=== PATIENT | male | born 1975 | race Caucasian/White ===

== ENCOUNTER 2023-05-15 09:53 | Outpatient (CLI) | payer BC, SELFPAY | END 2023-05-15 09:54 | disposition home or self-care (01) | LOC: LKVREF 09:56 | PROVIDERS: PCP Family Medicine; Visit Provider Family Medicine | DX: Z13.220 Encounter for screening for lipoid disorders (principal) | CPT/HCPCS: 80061 ==

== ENCOUNTER 2023-09-04 00:18 | Emergency (ER) | payer BC, SELFPAY ==
[2023-09-04 00:21] VITALS: BP 169/98; PULSE 99; RESP 16; TEMP 36.4; O2SAT 95; BMI 33.7
--- NOTE | 2023-09-04 00:37 | CRLHL7_ITS ---
For Patients: As a result of the Century Cures Act, medical imaging exams and procedure reports are released immediately into your electronic medical record. You may view this report before your referring provider. If you have questions, please contact your health care provider. INDICATION: Leg swelling, Unilateral leg swelling TECHNIQUE: Ultrasound venous duplex left lower extremity. Real-time redmond-scale (B mode 2D), color Doppler, and spectral Doppler imaging were performed with compression and augmentation. COMPARISON: None FINDINGS: Deep veins: The left common femoral, femoral, popliteal, and visualized calf veins are fully compressible, demonstrate normal color flow, and normal response to mechanical augmentation. The Duplex Doppler waveforms are normal in appearance. Superficial veins: The visualized greater saphenous and superficial veins of the leg and calf are unremarkable. Soft tissue: No masses or cysts are identified. No adenopathy is seen. IMPRESSION: 1. No sonographic evidence of acute deep venous thrombosis seen. Dictated by: William Mohan MD @ 09/04/2023 01:44:43 (Electronically Signed)
--- NOTE | 2023-09-04 00:37 | ED.GENADULT ---
HPI - General Adult General Date Seen: 09/04/23 Chief complaint: Extremity Pain/Injury, Lower Stated complaint: swollen left foot Time Seen by Provider: 09/04/23 00:20 Source: patient Mode of arrival: ambulatory Limitations: no limitations History of Present Illness HPI narrative: Patient is a 48-year-old male presenting for left lower extremity swelling. States the swelling was 1st noticed this morning. Has not noticed much pain in the leg other than to his left heel but does states he has been having issues with that heel since April when he hurt it jumping into a pool. Denies history of blood clots, recent immobility, DVTs, cancer. Denies numbness or inability to the left lower extremity. Denies chest pain, shortness of breath. No other concerns noted at this time Related Data Home Medications ?Medication ?Instructions ?Recorded ?Confirmed glucosamine 750 wp-tahfcagndfd-brm tab PO 05/15/23 05/15/23 no1 625 mg-C 30 mg-amairani 1 mg tablet (Kilnwpecekz-Ruuqkxugffx-ZOO) Allergies Allergy/AdvReac Type Severity Reaction Status Date / Time No Known Drug Allergies Allergy Unverified 05/15/23 09:23 Review of Systems Narrative: Pertinent systems reviewed and are negative unless stated in HPI PFSH PFSH Surgical History Status post cholecystectomy ?Z90.49 - Acquired absence of other specified parts of digestive tract (ICD-10) History of ventral hernia repair ?Z98.890 - Other specified postprocedural states (ICD-10) ?Z87.19 - Personal history of other diseases of the digestive system (ICD-10) Family History Other Leukemia Social History Little interest or pleasure in doing things: not at all Feeling down, depressed, or hopeless: not at all Exam Narrative: Exam Narrative: Const: Well-nourished, Well-developed, in mild distress Eyes: PERRL, no conjunctival injection, and symmetrical lids HENT: Atraumatic external nose and ears. Moist mucous membranes. CVS: RRR,Peripheral pulses 2+ and equal in all extremities RESP: Unlabored respiratory effort. MSK:Extremities w/o deformity, Normal Active ROM, +1 pitting edema left lower extremity [facility] [place] Skin: Warm, Dry. No rashes or lesions. Neuro: Normal Muscle tone, No focal neurological deficits. Psych: Awake, Alert, & Oriented x3. Appropriate mood and affect. Const: Vital Signs, click to edit/add: Vital Signs - 24 hr 09/04/23 00:21 Temperature 97.6 F Pulse Rate [Pulse Oximeter] 99 Respiratory Rate 16 Blood Pressure [Ri ght Upper Arm] 169/98 H Pulse Oximetry 95 Oxygen Delivery Me thod Room Air Course Vital Signs Vital signs: Initial Vital Signs Temperature 97.6 F 09/04/23 00:21 Temperature Source Temporal Artery Scan 09/04/23 00:21 Pulse Rate 99 09/04/23 00:21 Respiratory Rate 16 09/04/23 00:21 Blood Pressure 169/98 H 09/04/23 00:21 Blood Pressure Mean 121 H 09/04/23 00:21 Blood Pressure Position Sitting 09/04/23 00:21 Pulse Oximetry 95 09/04/23 00:21 Oxygen Delivery Method Room Air 09/04/23 00:21 Vital Signs Temperature 97.6 F 09/04/23 00:21 Pulse Rate 99 09/04/23 00:21 Respiratory Rate 16 09/04/23 00:21 Blood Pressure 169/98 H 09/04/23 00:21 Pulse Oximetry 95 09/04/23 00:21 Oxygen Delivery Method Room Air 09/04/23 00:21 Temperature 97.6 F 09/04/23 00:21 Pulse Rate 99 09/04/23 00:21 Respiratory Rate 16 09/04/23 00:21 Blood Pressure 169/98 H 09/04/23 00:21 Pulse Oximetry 95 09/04/23 00:21 Oxygen Delivery Method Room Air 09/04/23 00:21 Medical Decision Making MDM Narrative Medical decision making narrative: Foods a 48-year-old male presenting for left lower extremity swelling. There was some concern for DVT at this time. Per the wells score for DVT he has a score of 1 for his unilateral lower extremity pitting edema in the symptomatic leg. Are D-dimer is only moderate sensitivity so it cannot be used to rule out a D-dimer with a person score and 1 on this criteria. Ultrasound will be ordered. It returned and was negative. Patient has been up and walking a lot recently and he may have some relative venous insufficiency in the left leg compared to his right leg. He is otherwise doing well and will be discharged home. He is agreeable to this plan. Imaging Data Venous US: Attestation: I have reviewed the pertinent imaging results. Radiologist's impression: 1. No sonographic evidence of acute deep venous thrombosis seen. Dictated by: William Mohan MD @ 09/04/2023 01:44:43 Discharge Plan Discharge Clinical Impression: Left leg swelling Patient Disposition: Home, Self-Care Condition: Stable Instructions: Leg Edema (ED) Additional Instructions: Does not appear to be any blood clots on your ultrasound. If you continue to have this swelling if you follow-up with primary care provider. Return for new or worsening symptoms. Keep the leg elevated above your heart to help drain the fluid. Prescriptions: No Action mldwcvtp-thnux-fcz7-C-amairani-bor [Nmcumivi-Fmohm-ZGU(with boron)] [id number] mg tablet PO Follow Up/Referrals: Wero Humphrey MD [Primary Care Provider] - Stand Alone Forms: MyHealth Info Instructions
--- OUTSIDE RECORDS SUMMARY | 2023-09-04 00:41 | XMS_ITS | Clinical Summary ---
Author Organization [facility] Address [address] [place] [address] Care Team Providers Care Electric Deicer Assembler Name Role Phone Unassigned, Provider Primary Care Provider Unava ilable Source Comments You are receiving this document as you are listed as the primary care provider,follow-up provider, or the patient has been referred to you for consultation.This is in compliance with the Medicare and[facility] Incentive [facility],which states Providers who transition their patient to another setting of careor provider of care or refers their patient to another provider of care shouldprovide summary care record for each transition of care or referral. Critical access hospital Allergies No known active allergies Medications Medication Sig Dispensed Refills Start Date End Date Status naproxen sodium (AKA ANAPROX) 220 MG tablet Take 660 mg by mouth 2 times daily (with meals). 09/20/2011 Active Active Problems No known active problems Immunizations Name Administration Dates Next Due Influenza IIV4 (Quadrivalent) 0.5mL (78059) 01/24 Family History Medical History Relation Name Comments Cataract Mother Relation Name Status Comments Mother Social History Tobacco Use Types Packs/Day Years Used Date Smoking Tobacco: Former Sex and Gender Information Value Date Recorded Sex Assigned at Not on file Gender Identity Not on file Sexual Orientation Not on file Last Filed Vital Signs Vital Sign Reading Time Taken Comments Blood Pressure 135/88 09/19/2011 4:07 PM CDT Pulse 77 09/19/2011 4:07 PM CDT Temperature - - Respiratory Rate - - Oxygen Saturation - - Inhaled Oxygen Concentration - - Weight 81.6 kg (180 lb) 09/19/2011 4:07 PM CDT Height - - Body Mass Index - - Plan of Treatment Health Maintenance Due Date Last Done Comments Colon Cancer Screening Plan Due 1975 Hep C Screening (Preventive Services) 1975 HIV Screening (Preventive Services) 1991 Adult Preventive Visit 1993 HepB (1) 1994 Cholesterol 2010 DTaP/Tdap/Td (2 - Tdap) 05/29/2021 05/30/2011 COVID-19 Vaccine (3 - 2022-2 4 season) 2022 05/19/2020, 04/28/2020 Influenza (Season Ended) 2023 020, 02/05/2019 Zoster/Shingles (1 of 2) 2025 HepA Aged Out No longer eligi ble based on patient's age to complete this topic Hib Aged Out No longer eligi ble based on patient's age to complete this topic IPV (Polio) Aged Out No longer eligi ble based on patient's age to complete this topic MCV4 Aged Out No longer eligi ble based on patient's age to complete this topic Pneumococcal Aged Out No longer eligi ble based on patient's age to complete this topic Care Teams Electric Deicer Assembler Relationship Specialty Start Date End Date Unassigned, Provider [address] [place] [id number] PCP - General 05/26/00
[2023-09-04 02:31] VITALS: BP 154/80; PULSE 89; RESP 16; O2SAT 98
== END 2023-09-04 02:05 | disposition home or self-care (01) ==
PROVIDERS: Emergency Provider Student in an Organized Health Care Education/Training Program; PCP Family Medicine
DX: R22.42 Localized swelling, mass and lump, left lower limb (principal)
CPT/HCPCS: 93971; 99282; 99283

== ENCOUNTER 2024-01-17 07:19 | Outpatient (CLI) | payer BC, SELFPAY ==
--- OUTSIDE RECORDS SUMMARY | 2024-01-17 07:21 | XMS_ITS | Clinical Summary ---
Author Organization [facility] Address [address] [place] [address] Care Team Providers Care Certified Pesticide Applicator Name Role Phone Unassigned, Provider Primary Care Provider Unava ilable Source Comments You are receiving this document as you are listed as the primary care provider,follow-up provider, or the patient has been referred to you for consultation.This is in compliance with the Medicare and[facility] E[facility] Incentive [facility],which states Providers who transition their patient to another setting of careor provider of care or refers their patient to another provider of care shouldprovide summary care record for each transition of care or referral. [facility] Allergies No known active allergies Medications Medication Sig Dispensed Refills Start Date End Date Status naproxen sodium (AKA ANAPROX) 220 MG tablet Take 660 mg by mouth 2 times daily (with meals). 09/20/2011 Active Active Problems No known active problems Immunizations Name Administration Dates Next Due Influenza IIV4 (Quadrivalent) 0.5mL (86386) 01/24 Family History Medical History Relation Name [...] Tdap) 05/29/2021 05/30/2011 COVID-19 Vaccine (3 - 2023-2 5 season) 2023 05/19/2020, 04/28/2020 Influenza (#1) 2023 03/02/2020, 02/05/2019 Zoster/Shingles (1 of 2) 2025 HepA Aged Out No longer eligi ble based on patient's age to complete this topic Hib Aged Out No longer eligi ble based on patient's age to complete this topic IPV (Polio) Aged Out No longer eligi ble based on patient's age to complete this topic RSV Aged Out No longer eligi ble based on patient's age to complete this topic MCV4 Aged Out No longer eligi ble based on patient's age to complete this topic Pneumococcal Aged Out No longer eligi ble based on patient's age to complete this topic Care Teams Certified Pesticide Applicator Relationship Specialty Start Date End Date Unassigned, Provider [address] [place] [address] PCP - General 05/26/00
--- NOTE | 2024-01-17 08:36 | W.ANESCHARGE ---
Anesthesia Charges Start Date/Time Anesthesia Start Date: 01/17/24 Anesthesia Start Time: 07:56 Stop Date/Time Anesthesia Stop Date: 01/17/24 Anesthesia Stop Time: 08:33
--- NOTE | 2024-01-17 08:53 | W.ANESCHARGE ---
Anesthesia Charges Start Date/Time Anesthesia Start Date: 01/17/24 Anesthesia Start Time: 07:56 Stop Date/Time Anesthesia Stop Date: 01/17/24 Anesthesia Stop Time: 08:33
== END 2024-01-17 07:20 | disposition home or self-care (01) ==
LOC: OP CLINIC 07:20
PROVIDERS: PCP Family Medicine; Visit Provider Surgery
DX: Z12.11 Encounter for screening for malignant neoplasm of colon (principal); Z83.719 Family history of colon polyps, unspecified
CPT/HCPCS: 00812; 45378; J2704